=== PATIENT | female | born 1990 | race Caucasian/White ===

== ENCOUNTER 2023-04-19 06:00 | Day surgery (SDC) | payer OTHER ==
[~2023-04-19] VITALS: Ht 157.5 cm; Wt 49.0 kg
== END 2023-04-19 14:30 | disposition home or self-care (01) ==
LOC: CIR.AMB 06:00
PROVIDERS: ATTEND Surgery
DX: N60.21 Fibroadenosis of right breast (principal); I10 Essential (primary) hypertension; Z20.822 Contact with and (suspected) exposure to COVID-19; Z88.6 Allergy status to analgesic agent

== ENCOUNTER 2023-08-05 21:59 | Emergency (ER) | payer OTHER ==
[~2023-08-05] VITALS: Ht 157.5 cm; Wt 47.6 kg
[2023-08-06] MEDS ORDERED: ZYRTEC10 M3 PO (00:12)
== END 2023-08-06 04:02 | disposition home or self-care (01) ==
LOC: ER 21:59
DX: K29.70 Gastritis, unspecified, without bleeding (principal); Z88.8 Allergy status to other drugs, medicaments and biological substances